=== PATIENT | female | born 1995 | race Caucasian/White ===

== ENCOUNTER 2024-07-24 08:38 | Inpatient (IN) | payer SELFPAY ==
[~2024-07-24] VITALS: Ht 149.9 cm; Wt 75.0 kg
[2024-07-24] VITALS (19 sets, daily range): BP systolic 95–150; BP diastolic 50–76; PULSE 65–113; TEMP 98–98.7
--- NOTE | 2024-07-24 09:30 | NUR ---
PT WHEELED TO UNIT BY JOSE Vidal PT REPORTS SROM AT 0500. SVE 4-/-2. AMNISURE POSITIVE FOR AMNIOTIC FLUID. POSITIVE MOVEMENT. NO VAGINAL BLEEDING. REPORTS NO CTX. HAD OTHER BABIES IN [place] AND THEY ARE STILL IN [place]. PT REPORTS "WE ARE HERE ILLEGALLY SO WE COULDNT BRING THEM." PT PLANS TO STAY HERE WITH THIS BABY.
[2024-07-24] MEDS ORDERED: PRENATAL TABLET PO (09:56)
[2024-07-24] MEDS ORDERED: LR & Oxytocin 500 ML IV SCH (10:00)
[2024-07-24] MEDS ORDERED: LR 1,000 ML IV SCH (10:00)
[2024-07-24 10:29] LABS: BASO % 0.4 % (0.0-2.0); EOS # 0.2 K/mm3 (0.0-0.7); GRAN # 5.3 K/mm3 (1.4-6.5); GRAN % 66.4 % (42.2-75.2); LYMPH # 1.8 K/mm3 (1.2-3.4); LYMPH % 22.6 % (20.0-51.0); MEAN CELL VOLUME 83 fl (80.0-100.0); MEAN CORPUSCULAR HEMOGLOBIN 26 pg (27-31); MEAN CORPUSCULAR HGB CONC 32 g/dl (33.0-37.0); MEAN PLATELET VOLUME 12.3 fl (7.4-10.4); MONO # 0.6 K/mm3 (0.1-0.6); MONO % 7.3 % (1.7-9.3); PLATELET COUNT 151 K/mm3 (130-400); REDCELL DISTRIBUTION WIDTH-CV 15.9 % (11.5-14.5)
[2024-07-24 10:30] LABS: HEMATOCRIT 31.6 % (37.0-47.0)
--- NOTE | 2024-07-24 13:30 | NUR ---
PT REPORTS MODERATE AMOUNT OF PAIN WITH CTX. ASKED PATIENT IF SHE WANTS EPIDURAL. PT STATED SHE WANTS TO WAIT UNTIL LATER FOR EPIDURAL.
--- NOTE | 2024-07-24 14:15 | NUR ---
AT BEDSIDE FOR SVE -/-1. AROM OF FOREBAG NOTED AT THIS TIME CLEAR FLUID. PT TOLERATED WELL.
--- NOTE | 2024-07-24 15:00 | NUR ---
PT OUT OF ROOM REQUESTING EPIDURAL FOR PT. GOPI IN CS AT THIS TIME. PARTNER AT [facility] SO UNABLE TO PROVIDE EPIDURAL. PT UNDERSTANDS AND OK WITH THIS.
--- NOTE | 2024-07-24 15:32 | NUR ---
OF VIABLE FEMALE INFANT PER . TIGHT NCX1 REDUCED ON PERINEUM. 46 SECOND SHOULDER DISTOCIA NOTED D/T LACK OF MATERNAL PUSHING PER . BETZY MANEUVER PERFORMED. PT PUSHED AND SHOULDERS DELIVERED. INFANT CORD CUT, CLAMPED, AND TAKEN TO WARMER BY RHODA MOSS RN. [address] GALARZA. LOCHIA WNL WITH FIRM RUB. FUNDUS FIRM AT U. PERINEUM INTACT. ROOM PUT BACK TOGETHER. PT COMFORTABLE. VS STABLE.
[2024-07-24] MEDS ORDERED: Naloxone 0.4 MG/ML VIAL IV PRN (16:00)
[2024-07-24] MEDS ORDERED: Phenylephrine/Mineral Oil/Petrolatum 57 GM TUBE RC PRN (16:00)
[2024-07-24] MEDS ORDERED: Mag/Al Hydrox/Simeth Susp 30 ML CUP PO PRN (16:00)
[2024-07-24] MEDS ORDERED: Acetaminophen 500 MG TAB PO SCH (16:00)
[2024-07-24] MEDS ORDERED: Ibuprofen 600 MG TAB PO SCH (16:00)
[2024-07-24] MEDS ORDERED: oxyCODONE 5 MG TAB PO PRN (16:00)
[2024-07-24] MEDS ORDERED: Witch Hazel 50% Pads Bulk TUB TP PRN (16:00)
[2024-07-24] MEDS ORDERED: Magnes Hydrox (MOM) 80 MG/ML 30 ML CUP PO PRN (16:00)
[2024-07-24] MEDS ORDERED: Loratadine 10 MG TAB PO PRN (16:00)
[2024-07-24] MEDS ORDERED: Measles/Mumps/Rubella Virus Vaccine Live w Diluent 0.5 ML VIAL SQ SCH (16:00)
[2024-07-24] MEDS ORDERED: Sennosides/Docusate 8.6-50 MG TAB PO SCH (17:00)
--- NOTE | 2024-07-24 17:30 | NUR ---
PT UP TO BATHROOM, VOID, GOWN PANTIES AND PAD CHANGED. PT AMBULATORY TO NEW ROOM. PROVIDED MENU AND EDUCATION PACKET. VENKATA AT BEDSIDE TO HELP ORDER FOOD.
[2024-07-24] MEDS ORDERED: traZODone 50 MG TAB PO PRN (21:00)
[2024-07-25 00:10] VITALS: BP 120/67; PULSE 67; TEMP 98.5
[2024-07-25 04:00] VITALS: BP 116/53; PULSE 70; TEMP 97.7
[2024-07-25 08:11] VITALS: BP 107/69; PULSE 67; TEMP 98.1
--- NOTE | 2024-07-25 14:12 | NUR ---
REPORT GIVEN TO Jamie RAMIREZ RN AND CARE ASSUMED.
[2024-07-25 16:20] VITALS: BP 107/65; PULSE 77; TEMP 98
[2024-07-25 18:52] VITALS: BP 104/45; PULSE 71; TEMP 98.7
[2024-07-26 08:04] VITALS: BP 99/66; PULSE 74; TEMP 97.6
[2024-07-26] MEDS ORDERED: IBU600 MG PO (10:01)
--- NOTE | 2024-07-26 14:55 | NUR ---
DISCHARGE INSTRUCTIONS REVIEWED WITH PT AND SPOUSE USING BASEBALL COACH DUNIA ON TABLET. QUESTIONS INVITED AND ANSWERED, PT AND SPOUSE VERBALIZE UNDERSTANDING. PT DISCHARGED HOME, AMBULATES OUT OF FACILITY ACCOMPANIED BY FAMILY AND LST.
== END 2024-07-26 14:55 | disposition home or self-care (01) | DRG 807 ==
LOC: LDRO 08:38 → COL.ER 08:38 → EDSTATUS 08:43 → LDR 09:55 → LDRO 09:56 → OB 17:57
PROVIDERS: ADMIT Obstetrics & Gynecology
PROC: 10E0XZZ Delivery of Products of Conception, External Approach (ICD-10-PCS; principal; 2024-07-24)
DX: O99.02 Anemia complicating childbirth (principal); Z37.0 Single live birth; Z3A.39 39 weeks gestation of pregnancy
CPT/HCPCS: J2590; J7120